=== PATIENT | female | born 1945 | race Caucasian/White ===

== ENCOUNTER 2020-09-15 14:15 | Inpatient (IN) | payer OTHER ==
[2020-09-15 14:41] VITALS: BMI 22.9
[2020-09-15] MEDS ORDERED: ACETAMINOPHEN 325 MG TABLET (FP) PO PRN (18:04)
[2020-09-15] MEDS ORDERED: hydrOXYzine PAMOATE 25 MG CAPSULE (FP) PO PRN (18:04)
[2020-09-15] MEDS ORDERED: ONDANSETRON *ODT* 4 MG TABLET SL PRN (18:04)
[2020-09-15] MEDS ORDERED: BISMUTH SUBSALICYLATE 524 MG/30 ML PO PRN (18:04)
[2020-09-15] MEDS ORDERED: MENTHOL/PHENOL 1 EACH UD MM PRN (18:04)
[2020-09-15] MEDS ORDERED: MAGNESIUM CITRATE 300 ML BOTTLE PO PRN (18:04)
[2020-09-15] MEDS ORDERED: MAGNESIUM HYDROX 2400MG/30ML ORAL SUSPENSION 30 ML CUP PO PRN (18:04)
[2020-09-15] MEDS ORDERED: IBUPROFEN 400 MG TABLET (FP) PO PRN (18:04)
[2020-09-15] MEDS ORDERED: MAG HYDROX/AL HYDROX/SIMETH 30 ML UNIT-DOSE CUP PO PRN (18:04)
[2020-09-15] MEDS ORDERED: diazePAM 5 MG TABLET PO ONE (18:14)
[2020-09-15] MEDS: diazePAM 5 MG TABLET PO PRN (19:29)
[2020-09-15] MEDS ORDERED: diazePAM 5 MG TABLET PO SCH (23:00)
[2020-09-15] MEDS: MELATONIN 5 MG TABLETS PO SCH (23:03)
[2020-09-15] MEDS: diazePAM 5 MG TABLET PO SCH (23:03)
[2020-09-15] MEDS: BACITRACIN/POLYMYXIN B SULFATE 15 GM TUBE TP SCH (23:04)
[2020-09-15] MEDS: THIAMINE HCL 100 MG TABLET (FP) PO SCH (23:05)
[2020-09-16] MEDS: diazePAM 5 MG TABLET PO SCH ×4 (06:23→22:32)
[2020-09-16] MEDS: PRENATAL VITAMINS W/ FOLIC ACID TABLET (FP) PO SCH (10:52)
[2020-09-16] MEDS: ACETAMINOPHEN 325 MG TABLET (FP) PO PRN ×2 (10:54→22:30)
[2020-09-16 11:03] LABS: HEMATOCRIT 41.6 % (32.4-45.2); HEMOGLOBIN 13.6 GM/dL (10.7-15.3); MCH 35.5 pg (25.7-33.7); MCHC 32.7 g/dl (32.0-36.0); MEAN CELL VOLUME 108.7 fl (80-96); MEAN PLT VOLUME 9.4 fl (7.5-11.1); PLATELET COUNT 240 10^3/uL (134-434); RBC 3.83 M/mm3 (3.60-5.2); RDW 13.5 % (11.6-15.6); WHITE BLOOD COUNT 5.9 K/mm3 (4.0-10.0)
[2020-09-16] MEDS: BACITRACIN/POLYMYXIN B SULFATE 15 GM TUBE TP SCH ×2 (11:10→22:35)
[2020-09-16] MEDS ORDERED: BACITRACIN 15 GM TUBE TOPICAL OINTMENT TP SCH (11:15)
[2020-09-16 11:19] LABS: BLOOD UREA NITROGEN 7.5 mg/dL (7-18); CALCIUM 9.3 mg/dL (8.5-10.1)
[2020-09-16 11:23] LABS: CREATININE 0.6 mg/dL (0.55-1.3)
[2020-09-16 11:24] LABS: BILIRUBIN,TOTAL 0.6 mg/dL (0.2-1); TOT PROT 6.6 g/dl (6.4-8.2)
[2020-09-16] MEDS: THIAMINE HCL 100 MG TABLET (FP) PO SCH (22:31)
[2020-09-16] MEDS: MELATONIN 5 MG TABLETS PO SCH (22:35)
[2020-09-17] MEDS: diazePAM 5 MG TABLET PO SCH ×3 (05:47→22:18)
[2020-09-17] MEDS ORDERED: diazePAM 5 MG TABLET PO SCH (06:00)
[2020-09-17] MEDS: METHOCARBAMOL 500 MG TABLET PO PRN (10:26)
[2020-09-17] MEDS: PRENATAL VITAMINS W/ FOLIC ACID TABLET (FP) PO SCH (10:26)
[2020-09-17] MEDS: diazePAM 5 MG TABLET PO PRN (10:26)
[2020-09-17] MEDS: BACITRACIN/POLYMYXIN B SULFATE 15 GM TUBE TP SCH ×2 (10:27→22:21)
[2020-09-17] MEDS: ARTIFICIAL TEARS (POLYVINYL ALCOHOL) OPTH DROPS OU SCH ×3 (14:07→22:20)
[2020-09-17] MEDS: MELATONIN 5 MG TABLETS PO SCH (22:19)
[2020-09-17] MEDS: THIAMINE HCL 100 MG TABLET (FP) PO SCH (22:21)
[2020-09-18] MEDS: diazePAM 5 MG TABLET PO SCH ×2 (05:59→17:53)
[2020-09-18] MEDS: PRENATAL VITAMINS W/ FOLIC ACID TABLET (FP) PO SCH (10:39)
[2020-09-18] MEDS: BACITRACIN/POLYMYXIN B SULFATE 15 GM TUBE TP SCH ×2 (10:39→22:31)
[2020-09-18] MEDS: ARTIFICIAL TEARS (POLYVINYL ALCOHOL) OPTH DROPS OU SCH ×4 (10:39→22:30)
[2020-09-18] MEDS: MELATONIN 5 MG TABLETS PO SCH (22:29)
[2020-09-18] MEDS: METHOCARBAMOL 500 MG TABLET PO PRN (22:29)
[2020-09-18] MEDS: THIAMINE HCL 100 MG TABLET (FP) PO SCH (22:29)
[2020-09-19] MEDS ORDERED: diazePAM 5 MG TABLET PO ONE (06:00)
[2020-09-19] MEDS: PRENATAL VITAMINS W/ FOLIC ACID TABLET (FP) PO SCH (10:19)
[2020-09-19] MEDS: ARTIFICIAL TEARS (POLYVINYL ALCOHOL) OPTH DROPS OU SCH (10:19)
[2020-09-19] MEDS: BACITRACIN/POLYMYXIN B SULFATE 15 GM TUBE TP SCH (10:20)
[2020-09-19 11:02] VITALS: BP 130/72; PULSE 101; TEMP 97.1
== END 2020-09-19 11:06 | disposition home or self-care (01) | DRG 897 ==
LOC: YASAS 14:15 → UNDOADMIN 18:18 → Y6N 18:18
PROVIDERS: ADMIT Allergy & Immunology; ATTEND Allergy & Immunology
PROC: HZ2ZZZZ Detoxification Services for Substance Abuse Treatment (ICD-10-PCS; principal; 2020-09-15)
DX: F10.230 Alcohol dependence with withdrawal, uncomplicated (principal); F10.220 Alcohol dependence with intoxication, uncomplicated; F32.9 Major depressive disorder, single episode, unspecified; Z85.3 Personal history of malignant neoplasm of breast; Z87.891 Personal history of nicotine dependence
CPT/HCPCS: 36415; 80053; 85027; 86780; C9803; U0003; U0005